=== PATIENT | female | born 1975 | race Caucasian/White ===

== ENCOUNTER 2017-08-29 10:55 | Emergency (ER) | payer SELFPAY ==
[2017-08-29 12:15] LABS: Troponin I 0.013 ng/mL (< 0.028)
== END 2017-08-29 12:35 | disposition home or self-care (01) ==
LOC: ERS 10:55
DX: R07.89 Other chest pain (principal); I10 Essential (primary) hypertension; Z79.899 Other long term (current) drug therapy
CPT/HCPCS: 36415; 84484; 93005